=== PATIENT | female | born 1955 | race Caucasian/White ===

== ENCOUNTER → 2017-05-08 | Outpatient (CLI) | payer SELFPAY ==
--- NOTE | 2017-05-08 12:43 | Diagnostic Imaging Report ---
CLINICAL INDICATION: Patient states she has a knot and pain in her upper back between shoulder blades x3 months. No known injury. EXAM: MRI of the thoracic spine performed without IV contrast. Sequences include sagittal T1, sagittal T2, sagittal T2 fat-sat, and axial T2. COMPARISON: None. FINDINGS: There is no acute thoracic spine fracture or dislocation. Thoracic spine is normal in alignment. There is multilevel thoracic spine degenerative disease with hypertrophic disc spurs seen throughout. There is mild loss of intervertebral disc height involving the upper and mid thoracic levels. There are multiple levels of Modic type II degenerative signal changes seen throughout the midthoracic spine with associated anterior spurs. There are minimal Modic type I degenerative signal changes anteriorly at the T6-T7 level. There are diffuse disc bulges with associated posterior disc herniation seen at the T1-T2, T2-T3, T3-T4, T4-T5, T5-T6, T6-T7, T7-T8, and T8-T9 levels. There is mild central canal narrowing seen at these levels. There is severe bilateral T1-T2 neuroforaminal narrowing. There is severe right T2-T3 neuroforaminal narrowing. There is moderate left T2-T3 and bilateral T3-T4 neuroforaminal narrowing. There are other areas of mild neuroforaminal narrowing involving the upper and midthoracic spine. The remainder of the spinal cord has normal anatomic appearance and cord caliber with no abnormal signal changes. There is no significant paraspinal soft tissue abnormality. IMPRESSION: 1: There is multilevel thoracic spine degenerative disease with multilevel diffuse disc bulges and disc herniations and facet arthropathy. This is described in detail above. 2: There is severe bilateral T1-T2 and right T2-T3 neuroforaminal narrowing. There is moderate left T2-T3 and bilateral T3-T4 neuroforaminal narrowing. 3: There is multilevel mild central canal narrowing. Dictated by: Dictated on workstation # [id number]
== END ==
LOC: RAD 10:28
PROVIDERS: ATTEND Nurse Practitioner Family
DX: M48.04 Spinal stenosis, thoracic region (principal); M47.814 Spondylosis without myelopathy or radiculopathy, thoracic region; M51.24 Other intervertebral disc displacement, thoracic region; M51.34 Other intervertebral disc degeneration, thoracic region; M46.84 Other specified inflammatory spondylopathies, thoracic region
CPT/HCPCS: 72146

== ENCOUNTER 2021-09-05 05:34 | Outpatient (CLI) | payer MEDICARE ==
[~2021-09-05] VITALS: Ht 173 cm; Wt 95.5 kg
== END 2021-09-05 12:39 | disposition home or self-care (01) ==
LOC: PREOP 05:34
PROVIDERS: ATTEND Internal Medicine
DX: Z01.818 Encounter for other preprocedural examination (principal)

== ENCOUNTER 2021-09-13 07:27 | Day surgery (SDC) | payer MEDICARE ==
--- NOTE | 2021-09-05 07:51 | HISTORY AND PHYSICAL ---
DATE OF SERVICE: COLONOSCOPY HISTORY AND PHYSICAL HISTORY OF PRESENT ILLNESS: The patient is a bright 66-year-old white female referred by [facility] for screening colonoscopy. She had a colonoscopy roughly 20 years ago, at which time she reports several polyps were removed. Her sister was diagnosed with colon cancer in her early 40s. Both of her parents had polyps removed, dying in their early 80s without a history of colon cancer. There was another paternal grandmother who had a history of colon cancer later in life. The patient does report some occasional bright red blood per rectum that she attributes to hemorrhoids. Reports that her bowel habits have been normal. Denies abdominal pain. PAST MEDICAL HISTORY: Noncontributory. MEDICATIONS: She takes no prescription medication, does take several supplements including fish oil, magnesium, vitamin D, and she takes one ashwagandha capsule 450 mg daily. PAST SURGICAL HISTORY: She had tonsillectomy and adenoidectomy at the age of 5. Ligamentous repair on the right knee a number of years ago. She has had 3 jaw surgeries with failed implants. She is only able to open her mouth about 2 cm max distance secondary to this. 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 REVIEW OF SYSTEMS: CONSTITUTIONAL: Denies night sweats, chills, fever, change in weight. PULMONARY: Denies cough, wheezing or shortness of breath. CARDIOVASCULAR: Denies orthopnea, PND, pedal edema, chest pain or syncope. GASTROINTESTINAL: As noted in the HPI. PHYSICAL EXAMINATION: GENERAL: Reveals a pleasant white female in no acute distress. VITAL SIGNS: Weight 213 pounds, blood pressure 142/90. HEENT: Unremarkable. Sclerae nonicteric. CHEST: Clear to auscultation. CARDIOVASCULAR: Reveals regular rate and rhythm without murmur, S3 or S4. ABDOMEN: Soft, supple without mass, organomegaly or tenderness. EXTREMITIES: Reveal no cyanosis, clubbing or edema. ASSESSMENT AND PLAN: The patient is set up for screening colonoscopy, deemed to be of higher than average risk due to family history of colon cancer, see above. Prep instructions with the Suprep kit were given and questions were answered. I thank you for the referral of this pleasant lady. Job ID: [id number] DocumentID: [id number] Dictated Date: 08/12/2021 11:38:52 Finishing Room Operator Date: 08/12/2021 11:53:17 Dictated By: RAMONE DEMPSEY MD
[~2021-09-13] VITALS: Ht 173 cm; Wt 95.5 kg
[2021-09-13] MEDS ORDERED: LACTATED RINGERS 1,000 ML IV STA (07:38)
[2021-09-13 07:45] VITALS: BP 148/72
[2021-09-13] MEDS ORDERED: MIDAZOLAM 2 MG/2 ML (VERSED) VIAL ONE (08:23)
[2021-09-13] MEDS ORDERED: PROPOFOL INJECTION 50 ML IV ONE (08:23)
--- NOTE | 2021-09-13 08:25 | Pre-Op Note & Conscious Sedat ---
Pre-Operative Progress Note H&P Reviewed The H&P was reviewed, patient examined and no changes noted. Date H&P Reviewed: September 13, 2021 Time H&P Reviewed: 08:00 Conscious Sedation Pre-Proced ASA Score 2 For ASA 3 and 4: Consider anesthesia and medical clearance. Also, for patients with a history of failed moderate sedation consider anesthesia. Airway Lungs Heart ASA score ASA 1: a normal healthy patient ASA 2: a patient with a mild systemic disease (mid diabetes, controlled hypertension, obesity ASA 3: a patient with a severe systemic disease that limits activity (angina, COPD, prior Myocardial infarction) ASA 4: a patient with an incapacitating disease that is a constant threat to life (CHF, renal failure) ASA 5: a moribund patient not expected to survive 24 hrs. (ruptured aneurysm) ASA 6: a declared brain- patient whose organs are being harvested. For emergent operations, add the letter E after the classification Mallampati Classification Grade 2 Sedation Plan Analgesia, Amnesia, Plan communicated to team members, Discussed options with patient/fam, Discussed risks with patient/fam The patient is an appropriate candidate to undergo the planned procedure, sedation, and anesthesia. The patient immediately re-assessed prior to indication. RAMONE DEMPSEY MD September 13, 2021 08:25
[2021-09-13 09:00] VITALS: BP 127/69
[2021-09-13 09:05] VITALS: BP 108/64
[2021-09-13 09:29] VITALS: BP 122/89
--- NOTE | 2021-09-13 09:31 | Anesthesia-General Post-Op ---
MAC Patient Condition Mental Status/LOC: Same as Preop Cardiovascular: Satisfactory Nausea/Vomiting: Absent Respiratory: Satisfactory Pain: Controlled Complications: Absent Post Op Complications Complications None Follow Up Care/Instructions Patient Instructions None needed. Anesthesiology Discharge Order Discharge Order Patient is doing well, no complaints, stable vital signs, no apparent adverse anesthesia problems. No complications reported per nursing. SKIP CHAVEZ DO September 13, 2021 09:31
--- NOTE | 2021-09-13 12:09 | OPERATIVE REPORT ---
DATE OF SERVICE: COLONOSCOPY SUMMARY INDICATION FOR THE PROCEDURE: Screening colonoscopy. The patient was placed in the left lateral decubitus position. Prior to undergoing colonoscopy, digital rectal evaluation was performed. Anal sphincter tone was normal. Perianal reflexes intact. No abnormalities were noted on digital inspection of anal canal or distal rectal vault. The colonoscope was inserted in the rectum and under direct visualization advanced to the cecum. The cecum was identified by identification of the ileocecal valve and the cecal strap. Careful inspection was made as colonoscope was withdrawn. Quality of prep was fair. FINDINGS: There was no evidence for internal or external hemorrhoids and the rectum was unremarkable. Moderate diverticular disease confined to the sigmoid colon was present. Present in the mid sigmoid colon was a 3 mm sessile hyperplastic-appearing polyp. It was removed via cold polypectomy with biopsy forceps. The descending colon, splenic flexure, transverse colon, hepatic flexure, ascending colon, and cecum were unremarkable under fair prep conditions. There did appear to be some mild background melanosis coli changes. A biopsy from the rectum was sent for histopathology. ASSESSMENT: 1. Moderate diverticular disease confined to the sigmoid colon was present without evidence for diverticulitis. 2. One 3 mm sessile polyp was removed from the mid sigmoid colon. Considering family history, would advocate consideration for repeat surveillance colonoscopy in 5 years. I provided that her health remains good. CC: [facility] - requested, unable to deliver. Job ID: [id number] DocumentID: [id number] Dictated Date: 09/13/2021 09:01:11 Pesticide Use Medical Coordinator Date: 09/13/2021 12:08:02 Dictated By: RAMONE DEMPSEY MD
== END 2021-09-13 09:15 | disposition home or self-care (01) ==
LOC: ENDO 07:27
PROVIDERS: ATTEND Internal Medicine
DX: Z12.11 Encounter for screening for malignant neoplasm of colon (principal); K63.5 Polyp of colon; K57.30 Diverticulosis of large intestine without perforation or abscess without bleeding
CPT/HCPCS: 88305